=== PATIENT | female | born 1995 | race Caucasian/White ===

== ENCOUNTER 2020-01-23 16:17 | Emergency (ER) | payer SELFPAY ==
[~2020-01-23] VITALS: Ht 154.9 cm; Wt 72.6 kg
[2020-01-23 16:29] VITALS: BP 126/61
--- NOTE | 2020-01-23 16:35 | NUR ---
PT PLACED IN TENT FOR COVID PRECAUTIONS
--- NOTE | 2020-01-23 16:36 | NUR ---
24 Y/O FEMALE FROM HOME C/O SORE THROAT SINCE YESTERDAY AND SOB 20 MIN PRIOR TO ARRIVAL. DOES NOT APPEAR IN RESPIRATORY DISTRESS. RR EVEN AND UNLABORED, AWAKE AND ALERT. 4/10 PAIN. VSS. MEDHX: DENIES
--- NOTE | 2020-01-23 16:58 | NUR ---
COVID 19 SWAB COLLECTED
--- NOTE | 2020-01-23 16:58 | NUR ---
Patient discharged with v/s stable. Written and verbal after care instructions given and explained. Patient alert, oriented and verbalized understanding of instructions. Ambulatory with steady gait. All questions addressed prior to discharge. ID band removed. Patient advised to follow up with PMD. Rx of ROBATUSSIN 10 MG AND ACETAMINOPHEN 500MG given. Patient educated on indication of medication including possible reaction and side effects. Opportunity to ask questions provided and answered.
[2020-01-23 16:59] VITALS: BP 126/61
== END 2020-01-23 16:58 | disposition home or self-care (01) ==
LOC: MED 16:17 → EEVIPCON 16:17 → MED 16:58
DX: B34.9 Viral infection, unspecified (principal); Z20.828 Contact with and (suspected) exposure to other viral communicable diseases
CPT/HCPCS: 99283; U0003